=== PATIENT | male | born 1965 | race Caucasian/White ===

== ENCOUNTER 2024-10-19 07:02 | Emergency (ER) | payer MEDICAID ==
[~2024-10-19] VITALS: Ht 170.2 cm; Wt 69.9 kg
[2024-10-19] MEDS ORDERED: METHADONE HCL 10 MG TAB PO ONE (07:15)
[2024-10-19] MEDS ORDERED: METHADONE HCL40 MG PO (07:16)
[2024-10-19] MEDS ORDERED: BACTRIM DS TAB1 EACH PO (07:17)
[2024-10-19] MEDS ORDERED: ENOXAPARIN30 MG/0.3 SUB-Q (07:17)
[2024-10-19 07:46] VITALS: BP 118/82
== END 2024-10-19 07:48 | disposition home or self-care (01) ==
LOC: ED 07:02
DX: Z02.89 Encounter for other administrative examinations (principal); Z88.0 Allergy status to penicillin; Z79.899 Other long term (current) drug therapy
CPT/HCPCS: 99281